=== PATIENT | female | born 1980 | race African-American/Black ===

== ENCOUNTER 2021-04-19 21:41 | Observation (INO) ==
[2021-04-19] MEDS ORDERED: SODIUM CHLORIDE 0.9% 1,000 ML IV STA (22:23)
[2021-04-19] MEDS ORDERED: ONDANSETRON 4 MG/2 ML VIAL IV STA (22:23)
[2021-04-19 23:28] LABS: Basophils % 0.1 % (0.0-0.8); Eosinophils % 0.2 % (0.00-10.9); Hematocrit 30.1 VOL% (35.7-47.0); Hemoglobin 9.1 GM/DL (12.0-16.0); Immature Granulocytes % 1.2 %; Immature Granulocytes Absolute 0.15 #; Lymphocytes # 2.6 10*3/uL (1.4-4.0); Lymphocytes % 20.6 % (21.3-54.2); Mean Corpuscular HGB Conc 30.2 GM/DL (32-36); Mean Corpuscular Volume 67.8 FL (87-102); Mean Platelet Volume 8.8 FL (9.6-12.0); Monocytes % 6.4 % (1.7-12.7); Neutrophils % 71.5 % (38.7-73.9); Platelet Count 354 T/CUMM (130-400); Red Blood Count 4.44 MC/CUMM (3.8-5.5); Red Cell Distribution Width 19.3 % (9.3-17.3); White Blood Count 12.7 T/CUMM (4-12)
[2021-04-19 23:38] LABS: Bacteria,Urine Few /HPF (Few); Bilirubin,Urine Negative (Negative); Blood, Urine Negative (Negative); Glucose,Urine (UA) Negative (Negative); Ketones,Urine 80 mg/dL (Negative); Mucus,Urine Occasional /LPF (Occasional); Nitrite,Urine Positive (Negative); Protein,Urine Negative; RBC,Urine 4 /HPF (0-4); Squamous Epithelial Cell,Urine Occasional /HPF (0-10); Urine Appearance Slightly Hazy (Clear); Urine Color Yellow (Yellow); Urine Specific Gravity 1.012 (1.001-1.035); Urine Urobilinogen < 2.0 EU/DL (0.2-1.0)
[2021-04-19 23:47] LABS: Bilirubin,Total 0.4 MG/DL (0.20-1.00); Calcium 9.4 MG/DL (8.5-10.1); Osmolality,Calculated 265.2 MOS/KG (273-304); Potassium 3.5 MMOL/L (3.5-5.1); Total Protein 7.8 G/DL (6.4-8.2)
[2021-04-19] MEDS ORDERED: cefTRIAXone 1,000 MG in SODIUM CHLORIDE 0.9% 100 ML IV STA (23:51)
[2021-04-20] MEDS ORDERED: ONDANSETRON 4 MG/2 ML VIAL IV SCH (01:52)
[2021-04-20] MEDS ORDERED: SCOPOLAMINE 1.5 MG PATCH TRANSDERM PRN (01:52)
[2021-04-20] MEDS ORDERED: ACETAMINOPHEN 325 MG TABLET PO PRN (01:52)
[2021-04-20] MEDS ORDERED: ACETAMINOPHEN 500 MG TABLET PO PRN (01:54)
[2021-04-20] MEDS ORDERED: ONDANSETRON ODT 4 MG TABLET PO PRN (01:55)
[2021-04-20] MEDS: SODIUM CHLORIDE 0.9% 1,000 ML IV SCH ×3 (02:15→16:54)
[2021-04-20] MEDS: cefTRIAXone 1,000 MG in SODIUM CHLORIDE 0.9% 100 ML IV SCH (02:31)
[2021-04-20] MEDS: ONDANSETRON 4 MG/2 ML VIAL IV SCH ×4 (04:19→21:37)
[2021-04-20 04:22] LABS: Basophils % 0.2 % (0.0-0.8); Eosinophils % 0.4 % (0.00-10.9); Hematocrit 25.9 VOL% (35.7-47.0); Hemoglobin 7.8 GM/DL (12.0-16.0); Immature Granulocytes % 1.1 %; Lymphocytes # 2.2 10*3/uL (1.4-4.0); Lymphocytes % 24.9 % (21.3-54.2); Mean Corpuscular HGB Conc 30.1 GM/DL (32-36); Mean Corpuscular Volume 68.3 FL (87-102); Mean Platelet Volume 9.5 FL (9.6-12.0); Monocytes % 7.3 % (1.7-12.7); Neutrophils % 66.1 % (38.7-73.9); Platelet Count 318 T/CUMM (130-400); Red Blood Count 3.79 MC/CUMM (3.8-5.5); Red Cell Distribution Width 19.2 % (9.3-17.3)
[2021-04-20 04:50] LABS: Alanine Aminotransferase 11 U/L (13-56); Albumin 2.6 G/DL (3.4-5.0); Alkaline Phosphatase 63 U/L (45-117); Aspartate Amino Transferase 11 U/L (0-37); Bilirubin,Total < 0.39 MG/DL (0.20-1.00); Blood Urea Nitrogen 3 MG/DL (7-18); Calcium 8.9 MG/DL (8.5-10.1); Carbon Dioxide 26 MMOL/L (21-32); Estimated Glom Filtration Rate 149 ML/MIN; Glucose 99 MG/DL (74-106); Osmolality,Calculated 271.7 MOS/KG (273-304); Potassium 3.5 MMOL/L (3.5-5.1); Sodium 138 MMOL/L (136-145); Total Protein 6.7 G/DL (6.4-8.2)
[2021-04-20] MEDS ORDERED: ALUMINUM/MAGNES/SIMETH MAX STR 30 ML UDCUP PO PRN (14:17)
[2021-04-20] MEDS: PANTOPRAZOLE 40 MG VIAL IV SCH (20:24)
[2021-04-21] MEDS: cefTRIAXone 1,000 MG in SODIUM CHLORIDE 0.9% 100 ML IV SCH ×2 (00:12→06:46)
[2021-04-21] MEDS: ONDANSETRON 4 MG/2 ML VIAL IV SCH ×2 (03:39→08:54)
[2021-04-21] MEDS: SODIUM CHLORIDE 0.9% 1,000 ML IV SCH (06:35)
[2021-04-21 08:45] VITALS: BP 118/59
[2021-04-21] MEDS: PANTOPRAZOLE 40 MG VIAL IV SCH (08:53)
[2021-04-21] MEDS ORDERED: CIPROFLOXACIN 500 MG TABLET PO SCH (09:00)
== END 2021-04-21 12:30 | disposition home or self-care (01) ==
LOC: N.ED 21:41 → N.EDINP 21:41 → N.OB 04-20 01:55
PROVIDERS: ADMIT Obstetrics & Gynecology; ATTEND Obstetrics & Gynecology

== ENCOUNTER 2021-09-19 20:26 | Inpatient (IN) ==
[2021-09-19 21:00] LABS: Bacteria,Urine Many /HPF (Few); Mucus,Urine Occasional /LPF (Occasional); RBC,Urine 16 /HPF (0-4); Squamous Epithelial Cell,Urine Occasional /HPF (0-10); Urine Color Light Yellow (Yellow)
[2021-09-19 21:01] LABS: Bilirubin,Urine Negative (Negative); Blood, Urine Moderate mg/dL (Negative); Glucose,Urine (UA) Negative (Negative); Ketones,Urine Negative (Negative); Nitrite,Urine Negative (Negative); Protein,Urine Negative; Urine Appearance Slightly Hazy (Clear); Urine Specific Gravity 1.015 (1.001-1.035); Urine Urobilinogen 0.2 EU/DL (<2.0); Urine pH 6.5 (4.5-8.0)
[2021-09-19] MEDS: LABETALOL 100 MG TABLET PO SCH (21:24)
[2021-09-19 21:48] LABS: Hematocrit 28.2 VOL% (35.7-47.0); Hemoglobin 8.8 GM/DL (12.0-16.0); Red Blood Count 3.99 MC/CUMM (3.8-5.5); White Blood Count 8.8 T/CUMM (4-12)
[2021-09-19 21:49] LABS: Basophils % 0.1 % (0.0-0.8); Eosinophils % 0.2 % (0.00-10.9); Immature Granulocytes % 1.5 %; Immature Granulocytes Absolute 0.13 #; Mean Corpuscular HGB Conc 31.2 GM/DL (32-36); Mean Corpuscular Volume 70.7 FL (87-102); Mean Platelet Volume 9.7 FL (9.6-12.0); Monocytes % 5.4 % (1.7-12.7); NRBC # 0.02 10*3/uL; Neutrophils % 69.8 % (38.7-73.9); Platelet Count 278 T/CUMM (130-400); Red Cell Distribution Width 18.8 % (9.3-17.3)
[2021-09-19 22:03] LABS: INR 0.9; PT Patient Result 10.6 SECS (10.5-12.0); Partial Thromboplastin Time 25.7 SECS (23.8-32.1)
[2021-09-19 22:13] LABS: Alanine Aminotransferase 13 U/L (13-56); Albumin 2.5 G/DL (3.4-5.0); Alkaline Phosphatase 147 U/L (45-117); Aspartate Amino Transferase 15 U/L (0-37); Bilirubin,Direct < 0.100 MG/DL (0.0-0.20); Bilirubin,Total < 0.39 MG/DL (0.20-1.00); Blood Urea Nitrogen 3 MG/DL (7-18); Calcium 8.7 MG/DL (8.5-10.1); Carbon Dioxide 24 MMOL/L (21-32); Estimated Glom Filtration Rate 139 ML/MIN; Glucose 81 MG/DL (74-106); Osmolality,Calculated 268.8 MOS/KG (273-304); Potassium 3.4 MMOL/L (3.5-5.1); Sodium 137 MMOL/L (136-145); Total Protein 6.7 G/DL (6.4-8.2); Uric Acid 5.1 MG/DL (2.6-6.0)
[2021-09-20 02:28] LABS: Protein/Creatinine Ratio,Urine 0.2 RATIO
[2021-09-20] MEDS ORDERED: ACETAMINOPHEN 500 MG TABLET PO PRN (04:23)
[2021-09-20] MEDS: LABETALOL 100 MG TABLET PO SCH ×2 (09:52→20:50)
[2021-09-20] MEDS ORDERED: ALUMINUM/MAGNES/SIMETH MAX STR 30 ML UDCUP PO PRN (10:34)
[2021-09-20] MEDS ORDERED: ePHEDrine 50 MG/ML VIAL IV PRN (15:43)
[2021-09-20] MEDS ORDERED: CITRIC ACID/SODIUM CITRATE 30 ML UDCUP PO ONE (15:43)
[2021-09-20] MEDS ORDERED: FAMOTIDINE 20 MG/2 ML VIAL IV ONE (15:43)
[2021-09-20] MEDS ORDERED: LACTATED RINGERS 1,000 ML IV ONE (15:43)
[2021-09-20] MEDS ORDERED: LACTATED RINGERS 1,000 ML IV SCH (16:00)
[2021-09-21] MEDS: LACTATED RINGERS 1,000 ML IV SCH ×2 (03:59→08:26)
[2021-09-21 04:19] LABS: Basophils % 0.2 % (0.0-0.8); Eosinophils % 0.3 % (0.00-10.9); Hematocrit 27.5 VOL% (35.7-47.0); Hemoglobin 8.5 GM/DL (12.0-16.0); Immature Granulocytes % 1.7 %; Immature Granulocytes Absolute 0.15 #; Lymphocytes # 2.2 10*3/uL (1.4-4.0); Lymphocytes % 24.9 % (21.3-54.2); Mean Corpuscular HGB Conc 30.9 GM/DL (32-36); Mean Corpuscular Volume 70.7 FL (87-102); Mean Platelet Volume 11.1 FL (9.6-12.0); Monocytes % 5.3 % (1.7-12.7); NRBC # 0.02 10*3/uL; Neutrophils % 67.6 % (38.7-73.9); Platelet Count 264 T/CUMM (130-400); Red Blood Count 3.89 MC/CUMM (3.8-5.5); White Blood Count 8.9 T/CUMM (4-12)
[2021-09-21 04:38] LABS: Hypochromia 1+; Lymphocytes 30 % (20-55); Microcytosis 1+; Nucleated Red Blood Cells 3 (0-5); Platelet Estimate Adequate; Segmented Neutrophils 65 % (50-85); Total Cells Counted 100
[2021-09-21] MEDS ORDERED: ONDANSETRON 4 MG/2 ML VIAL IV PRN ×2 (04:58→09:47)
[2021-09-21] MEDS ORDERED: CITRIC ACID/SODIUM CITRATE 30 ML UDCUP PO ONE (05:01)
[2021-09-21] MEDS ORDERED: hydrOXYzine HCL 25 MG/1 ML VIAL IM PRN (05:01)
[2021-09-21] MEDS ORDERED: diphenhydrAMINE 50 MG/1 ML VIAL IV PRN ×2 (05:01)
[2021-09-21] MEDS ORDERED: PROMETHAZINE 25 MG/1 ML VIAL IM ONE (05:01)
[2021-09-21] MEDS ORDERED: FAMOTIDINE 20 MG/2 ML VIAL IV ONE (05:01)
[2021-09-21] MEDS ORDERED: OXYTOCIN/LR 30 UNIT/1,000 ML BAG IV ONE (05:38)
[2021-09-21] MEDS ORDERED: OXYTOCIN 10 UNIT/ML VIAL IM ONE (05:38)
[2021-09-21] MEDS ORDERED: ceFAZolin 2,000 MG/50 ML DUPLEX IV ONE (08:00)
[2021-09-21] MEDS ORDERED: ONDANSETRON 4 MG/2 ML VIAL ONE (08:21)
[2021-09-21] MEDS ORDERED: ACETAMINOPHEN INJ 1,000 MG/100 ML VIAL IV ONE (08:31)
[2021-09-21] MEDS ORDERED: DEXAMETHASONE 4 MG/1 ML VIAL ONE ×2 (08:31→09:06)
[2021-09-21] MEDS ORDERED: KETOROLAC 30 MG/1 ML VIAL ONE (08:31)
[2021-09-21] MEDS ORDERED: BUPIVACAINE SPINAL 0.75% 2 ML AMP SPINAL ONE (08:31)
[2021-09-21] MEDS ORDERED: ePHEDrine 50 MG/ML VIAL ONE (08:50)
[2021-09-21] MEDS ORDERED: PHENYLEPHRINE 1 MG/10 ML SYRINGE IV ONE ×2 (08:51→09:15)
[2021-09-21 09:20] LABS: Bacteria,Urine Occasional /HPF (Few); Bilirubin,Urine Negative (Negative); Blood, Urine Moderate mg/dL (Negative); Glucose,Urine (UA) Negative (Negative); Ketones,Urine Negative (Negative); Nitrite,Urine Negative (Negative); Protein,Urine Negative; RBC,Urine 54 /HPF (0-4); Squamous Epithelial Cell,Urine Occasional /HPF (0-10); Urine Appearance Clear (Clear); Urine Color Light Yellow (Yellow); Urine Specific Gravity 1.015 (1.001-1.035); Urine Urobilinogen 0.2 EU/DL (<2.0); Urine pH 7.5 (4.5-8.0)
[2021-09-21 09:22] LABS: Cord Venous Blood HCO3 23.7 MMOL/L; Cord Venous Blood PCO2 53.6 MMHG; Cord Venous Blood PO2 31.4
[2021-09-21] MEDS ORDERED: ACETAMINOPHEN 325 MG TABLET PO PRN (09:47)
[2021-09-21] MEDS ORDERED: MAGNESIUM HYDROXIDE SUSP 30 ML UDCUP PO PRN (09:47)
[2021-09-21] MEDS ORDERED: SIMETHICONE CHEW 80 MG TABLET PO PRN (09:47)
[2021-09-21] MEDS ORDERED: RHO(D) IMMUNE GLOBULIN 300 MCG SYRINGE IM ONE (09:47)
[2021-09-21] MEDS ORDERED: OXYTOCIN/LR 20 UNIT/1,000 ML BAG IV ONE (09:47)
[2021-09-21] MEDS ORDERED: LACTATED RINGERS 1,000 ML IV SCH (10:00)
[2021-09-21] MEDS ORDERED: HYDROmorphone 1 MG/1 ML SYRINGE IV ONE (12:09)
[2021-09-21 12:26] LABS: Hematocrit 30.2 VOL% (35.7-47.0); Hemoglobin 9.3 GM/DL (12.0-16.0)
[2021-09-21] MEDS ORDERED: KETOROLAC 30 MG/1 ML VIAL IV SCH (15:00)
[2021-09-21] MEDS ORDERED: ACETAMINOPHEN 500 MG TABLET PO SCH (15:00)
[2021-09-21 15:07] LABS: Basophils % 0.1 % (0.0-0.8); Hematocrit 29.9 VOL% (35.7-47.0); Hemoglobin 9.2 GM/DL (12.0-16.0); Immature Granulocytes % 1.3 %; Lymphocytes # 1.2 10*3/uL (1.4-4.0); Lymphocytes % 7.7 % (21.3-54.2); Mean Corpuscular HGB Conc 30.8 GM/DL (32-36); Mean Corpuscular Volume 71.5 FL (87-102); Monocytes % 2.3 % (1.7-12.7); Neutrophils % 88.6 % (38.7-73.9); Platelet Count 271 T/CUMM (130-400); Red Blood Count 4.18 MC/CUMM (3.8-5.5); Red Cell Distribution Width 19.1 % (9.3-17.3); White Blood Count 15.1 T/CUMM (4-12)
[2021-09-21] MEDS: ACETAMINOPHEN 500 MG TABLET PO SCH (17:25)
[2021-09-21] MEDS: KETOROLAC 30 MG/1 ML VIAL IV SCH ×2 (17:26→22:34)
[2021-09-21] MEDS: DOCUSATE SODIUM 100 MG CAPSULE PO SCH (23:16)
[2021-09-22] MEDS: ACETAMINOPHEN 500 MG TABLET PO SCH ×2 (01:58→07:07)
[2021-09-22] MEDS: KETOROLAC 30 MG/1 ML VIAL IV SCH (06:04)
[2021-09-22 06:07] LABS: Basophils % 0.1 % (0.0-0.8); Eosinophils % 0.1 % (0.00-10.9); Hematocrit 25.9 VOL% (35.7-47.0); Immature Granulocytes % 1.2 %; Immature Granulocytes Absolute 0.16 #; Lymphocytes # 1.8 10*3/uL (1.4-4.0); Lymphocytes % 13.2 % (21.3-54.2); Mean Corpuscular HGB Conc 30.9 GM/DL (32-36); Mean Platelet Volume 10.8 FL (9.6-12.0); Monocytes % 7.4 % (1.7-12.7); Platelet Count 283 T/CUMM (130-400); Red Blood Count 3.65 MC/CUMM (3.8-5.5); Red Cell Distribution Width 18.7 % (9.3-17.3); White Blood Count 13.6 T/CUMM (4-12)
[2021-09-22] MEDS: MULTIVITAMIN (PRENATAL) TABLET PO SCH (09:09)
[2021-09-22] MEDS: DOCUSATE SODIUM 100 MG CAPSULE PO SCH ×2 (09:09→22:01)
[2021-09-22] MEDS: IBUPROFEN 800 MG TABLET PO PRN ×2 (15:22→22:01)
[2021-09-22] MEDS: FERROUS SULFATE 325 MG TABLET PO SCH ×2 (18:01→22:01)
[2021-09-23] MEDS: FERROUS SULFATE 325 MG TABLET PO SCH (08:45)
[2021-09-23] MEDS: DOCUSATE SODIUM 100 MG CAPSULE PO SCH (08:45)
[2021-09-23] MEDS: MULTIVITAMIN (PRENATAL) TABLET PO SCH (08:45)
[2021-09-23 11:15] VITALS: BP 124/73
== END 2021-09-23 13:30 | disposition home or self-care (01) | DRG 787 ==
LOC: N.LDOUT 20:26 → N.LD 20:28 → N.OB 09-21 14:02
PROVIDERS: ADMIT Obstetrics & Gynecology; ATTEND Obstetrics & Gynecology
PROC: LDCSECT (ICD-10-PCS; 2021-09-21 08:30)